=== PATIENT | female | born 1945 | race Caucasian/White ===

== ENCOUNTER 2020-08-12 13:17 | Inpatient (IN) | payer MEDICARE, OTHER ==
[2020-08-12 15:50] LABS: BASOPHIL 0.4 % (0-2); EOSINOPHIL 1.5 % (0-7); HCT 26.5 % (37.0-47.0); HGB 8.9 g/dl (12.5-16.0); LYMPHOCYTE 17.3 % (15-48); MCH 32.6 pg (25.0-31.0); MCHC 33.6 g/dL (32.0-36.0); MCV 97.1 fL (78.0-100.0); MONOCYTE 9.2 % (0-12); MPV 9.7 fL (6.0-9.5); NRBC 0; PLT 243 K/uL (150-400); RBC 2.73 M/uL (4.20-5.40); RDW 12.2 % (11.5-14.0); WBC 11.2 K/uL (4.0-10.5)
[2020-08-12 15:56] LABS: INR 4.82 (0.9-1.2); PROTHROMBIN TIME 43.1 SECONDS (11.4-13.6)
[2020-08-12 16:05] LABS: ALBUMIN 3.5 g/dL (3.4-5.0); BILIRUBIN - TOTAL 0.3 mg/dL (0.2-1.0); BUN/CREAT RATIO (CALC) 18.8 RATIO; CREATININE 0.96 mg/dL (0.51-0.95); GLOBULIN (CALCULATION) 3.7 g/dL; TOTAL PROTEIN 7.2 g/dL (6.4-8.2)
[2020-08-12 17:07] LABS: BILIRUBIN NEGATIVE (NEGATIVE); BLOOD 1+ Ery/uL (NEGATIVE); CLARITY CLEAR (CLEAR); COLOR YELLOW (YELLOW); GLUCOSE (U) NORMAL (NORMAL); LEUKOCYTES NEGATIVE Leu/uL (NEGATIVE); NITRITE NEGATIVE (NEGATIVE); PROTEIN NEGATIVE (NEGATIVE); UROBILINOGEN 0.2 mg/dL (0.2-1.0); pH 6.5 (5.0-9.0)
[2020-08-12 17:13] LABS: URINARY RBC RARE
[2020-08-12] MEDS ORDERED: OPSUMIT10 MG PO (21:22)
[2020-08-12] MEDS ORDERED: ADCIRCA20 MG PO (21:22)
[2020-08-12] MEDS ORDERED: SYNTHROID125 MCG PO (21:23)
[2020-08-12] MEDS ORDERED: PROZAC20 MG PO (21:24)
[2020-08-12] MEDS ORDERED: JANTOVEN3 MG PO (21:24)
[2020-08-12] MEDS ORDERED: CYCLOBENZAPRINE10 MG PO (21:25)
[2020-08-12] MEDS ORDERED: PRILOSEC20 MG PO (21:25)
[2020-08-12] MEDS ORDERED: DIGITEK125 MCG PO (21:26)
[2020-08-12] MEDS ORDERED: LOVASTATIN10 MG PO (21:28)
[2020-08-13 01:06] LABS: HCT 21.6 % (37.0-47.0); HGB 7.2 g/dL (12.5-16.0)
[2020-08-13 06:00] LABS: BASOPHIL 0.4 % (0-2); EOSINOPHIL 4.1 % (0-7); HCT 21.1 % (37.0-47.0); LYMPHOCYTE 24.3 % (15-48); MCH 32.6 pg (25.0-31.0); MCHC 33.2 g/dL (32.0-36.0); MCV 98.1 fL (78.0-100.0); MONOCYTE 10.3 % (0-12); MPV 9.4 fL (6.0-9.5); NEUTROPHIL 60.5 % (41-80); NRBC 0; PLT 173 K/uL (150-400); RBC 2.15 M/uL (4.20-5.40); RDW 12.6 % (11.5-14.0); WBC 6.8 K/uL (4.0-10.5)
[2020-08-13 06:11] LABS: INR 4.01 (0.9-1.2); PROTHROMBIN TIME 37.3 SECONDS (11.4-13.6)
--- NOTE | 2020-08-13 06:12 | NUR ---
APAPRN NOTIFIED OF PT HGB OF 7.0. WILL CONTINUE TO MONITOR
[2020-08-13 06:26] LABS: IRON % SATURATION 53.1 %SAT (20-50)
[2020-08-13 06:34] LABS: BUN/CREAT RATIO (CALC) 20.5 RATIO; CREATININE 0.88 mg/dL (0.51-0.95); POTASSIUM 4.3 mmol/L (3.5-5.1)
[2020-08-13] MEDS ORDERED: TOPROL XL 50 MG50 MG PO (09:57)
[2020-08-13] MEDS ORDERED: BUMEX1 MG PO (09:57)
[2020-08-13] MEDS ORDERED: FOLIC ACID1 MG PO (10:01)
[2020-08-13] MEDS ORDERED: POTASSIUM CHLO10 MEQ PO ×2 (10:03→10:04)
[2020-08-13 20:56] LABS: HCT 30.5 % (37.0-47.0)
[2020-08-13 20:57] LABS: HGB 10.1 g/dL (12.5-16.0)
[2020-08-14 05:12] LABS: BASOPHIL 0.5 % (0-2); EOSINOPHIL 4.5 % (0-7); HCT 30.3 % (37.0-47.0); LYMPHOCYTE 21.2 % (15-48); MCH 31.9 pg (25.0-31.0); MCHC 32.7 g/dL (32.0-36.0); MCV 97.7 fL (78.0-100.0); MONOCYTE 10.6 % (0-12); MPV 9.5 fL (6.0-9.5); NEUTROPHIL 62.8 % (41-80); NRBC 0; PLT 168 K/uL (150-400); WBC 7.8 K/uL (4.0-10.5)
[2020-08-14 05:18] LABS: INR 1.39 (0.9-1.2); PROTHROMBIN TIME 16.2 SECONDS (11.4-13.6)
[2020-08-14 05:25] LABS: BUN/CREAT RATIO (CALC) 17.6 RATIO; CREATININE 0.85 mg/dL (0.51-0.95); POTASSIUM 3.8 mmol/L (3.5-5.1)
[2020-08-14 06:08] LABS: HGB 9.9 g/dl (12.5-16.0)
[2020-08-15 09:20] LABS: BASOPHIL 0.5 % (0-2); EOSINOPHIL 3.2 % (0-7); HCT 35.5 % (37.0-47.0); HGB 11.7 g/dl (12.5-16.0); MCH 32.3 pg (25.0-31.0); MCV 98.1 fL (78.0-100.0); MONOCYTE 9.2 % (0-12); MPV 9.2 fL (6.0-9.5); NEUTROPHIL 67.7 % (41-80); NRBC 0; PLT 297 K/uL (150-400); RBC 3.62 M/uL (4.20-5.40); RDW 13.4 % (11.5-14.0)
[2020-08-15 09:21] LABS: WBC 15.6 K/uL (4.0-10.5)
[2020-08-15 09:37] LABS: INR 1.12 (0.9-1.2); PROTHROMBIN TIME 13.7 SECONDS (11.4-13.6)
[2020-08-15 10:06] LABS: BUN/CREAT RATIO (CALC) 9.8 RATIO; CREATININE 0.82 mg/dL (0.51-0.95)
== END 2020-08-15 15:40 | disposition home or self-care (01) | DRG 378 ==
LOC: FER 13:17 → FTCU 20:00
PROVIDERS: Allergy & Immunology Allergy; Nurse Practitioner; Nurse Practitioner Family; Surgery; ADMIT Internal Medicine
PROC: 0DJD8ZZ Inspection of Lower Intestinal Tract, Via Natural or Artificial Opening Endoscopic (ICD-10-PCS; 2020-08-15)
PROC: 30233N1 Transfusion of Nonautologous Red Blood Cells into Peripheral Vein, Percutaneous Approach (ICD-10-PCS; principal; 2020-08-15 11:00)
DX: K92.2 Gastrointestinal hemorrhage, unspecified (principal); D62 Acute posthemorrhagic anemia; I27.20 Pulmonary hypertension, unspecified; E78.5 Hyperlipidemia, unspecified; I25.10 Atherosclerotic heart disease of native coronary artery without angina pectoris; N18.9 Chronic kidney disease, unspecified; F32.9 Major depressive disorder, single episode, unspecified; Z20.822 Contact with and (suspected) exposure to COVID-19; M19.90 Unspecified osteoarthritis, unspecified site; Z85.3 Personal history of malignant neoplasm of breast; Z86.718 Personal history of other venous thrombosis and embolism; Z95.1 Presence of aortocoronary bypass graft; Z90.710 Acquired absence of both cervix and uterus; Z90.49 Acquired absence of other specified parts of digestive tract; Z88.6 Allergy status to analgesic agent; Z51.5 Encounter for palliative care
CPT/HCPCS: 36415; 36430; 80048; 80053; 81001; 82728; 83540; 83550; 85014; 85018; 85025; 85610; 85730; 86850; 86900; 86901; 86922; 93005; J2704; J3430; J7030; J7120; P9016; Q9967; U0002

== ENCOUNTER 2020-12-30 16:32 | Inpatient (IN) | payer MEDICARE, OTHER ==
[~2020-12-30] VITALS: Ht 165.1 cm; Wt 57.7 kg
[~2020-12-30 16:32] MED LIST: ADCIRCA20 MG PO; BUMEX1 MG PO; CYCLOBENZAPRINE10 MG PO; DIGITEK125 MCG PO; FOLIC ACID1 MG PO; JANTOVEN3 MG PO; LOVASTATIN10 MG PO; OPSUMIT10 MG PO; POTASSIUM CHLO10 MEQ PO; PRILOSEC20 MG PO; PROZAC20 MG PO; SYNTHROID125 MCG PO; TOPROL XL 50 MG50 MG PO
[2020-12-30 16:57] LABS: BASOPHIL 0.6 % (0-2); EOSINOPHIL 2.9 % (0-7); HCT 28.4 % (37.0-47.0); HGB 9.8 g/dl (12.5-16.0); LYMPHOCYTE 14.1 % (15-48); MCHC 34.5 g/dL (32.0-36.0); MCV 95.6 fL (78.0-100.0); MONOCYTE 7.6 % (0-12); MPV 9.1 fL (6.0-9.5); NEUTROPHIL 74.3 % (41-80); NRBC 0; PLT 197 K/uL (150-400); RBC 2.97 M/uL (4.20-5.40); RDW 13.2 % (11.5-14.0); WBC 9.6 K/uL (4.0-10.5)
[2020-12-30 17:22] LABS: ALBUMIN 3.5 g/dL (3.4-5.0); BILIRUBIN - TOTAL 0.5 mg/dL (0.2-1.0); BUN/CREAT RATIO (CALC) 15.5 RATIO; CREATININE 0.84 mg/dL (0.51-0.95); GLOBULIN (CALCULATION) 4.4 g/dL; TOTAL PROTEIN 7.9 g/dL (6.4-8.2)
[2020-12-30 17:31] LABS: POTASSIUM 4.7 mmol/L (3.5-5.1)
[2020-12-30 17:38] LABS: PROTHROMBIN TIME 103.2 SECONDS (11.4-13.6)
[2020-12-30 17:40] LABS: INR 14.59 (0.9-1.2); PTT 113.3 SECONDS (22.2-34.7)
[2020-12-31 06:17] LABS: BASOPHIL 0.5 % (0-2); EOSINOPHIL 3.7 % (0-7); HCT 24.6 % (37.0-47.0); HGB 8.5 g/dl (12.5-16.0); LYMPHOCYTE 20.2 % (15-48); MCH 33.1 pg (25.0-31.0); MCHC 34.6 g/dL (32.0-36.0); MCV 95.7 fL (78.0-100.0); MONOCYTE 11.6 % (0-12); MPV 9.6 fL (6.0-9.5); NEUTROPHIL 63.5 % (41-80); NRBC 0; PLT 158 K/uL (150-400); RBC 2.57 M/uL (4.20-5.40); WBC 8.1 K/uL (4.0-10.5)
[2020-12-31 06:34] LABS: CREATININE 0.8 mg/dL (0.51-0.95); POTASSIUM 4.7 mmol/L (3.5-5.1)
[2020-12-31 06:40] LABS: INR 11.07 (0.9-1.2)
[2020-12-31] MEDS ORDERED: BACLOFEN 10MG T10 MG PO (09:58)
[2020-12-31] MEDS ORDERED: ALLOPURINOL100 MG PO (09:59)
[2020-12-31] MEDS ORDERED: TOPROL XL 50 MG50 MG PO (10:02)
[2020-12-31] MEDS ORDERED: OPSUMIT PO (10:04)
[2020-12-31] MEDS ORDERED: PRINIVIL20 MG PO (10:04)
[2020-12-31] MEDS ORDERED: [UNRECOGNIZED DRUG - OTHER] (11:29)
[2020-12-31] MEDS ORDERED: IMMODIUM (11:29)
--- NOTE | 2020-12-31 15:56 | NUR ---
MET WITH PT. REGARDING HOME NEEDS. PT. STATES THAT SHE RESIDES WITH HER . HER IS LEGALLY BLIND. SHE IS RESPONSIBLE FOR DRIVING AND ALL ERRANDS AND APPTS. SHE HAS ONE DAUGHTER AND SON IN LAW WHO ARE SUPPORTIVE AND OFFER ASSISTANCE WHEN THEY CAN. PT. IS INDEPENDENT AND DOES NOT REQUIRE ANY DME. SHE DOES NOT HAVE HH NOR DOES SHE WANT IT.
[2021-01-01 05:39] LABS: BASOPHIL 0.5 % (0-2); EOSINOPHIL 3.4 % (0-7); HGB 8.1 g/dl (12.5-16.0); LYMPHOCYTE 19.4 % (15-48); MCH 33.5 pg (25.0-31.0); MCHC 35.2 g/dL (32.0-36.0); MONOCYTE 11.9 % (0-12); MPV 9.5 fL (6.0-9.5); NEUTROPHIL 64.1 % (41-80); NRBC 0; PLT 143 K/uL (150-400); RBC 2.42 M/uL (4.20-5.40); RDW 13.2 % (11.5-14.0); WBC 7.4 K/uL (4.0-10.5)
[2021-01-01 05:59] LABS: INR 3.7 (0.9-1.2)
--- NOTE | 2021-01-01 15:07 | NUR ---
CALLED [facility] AT [phone] SPOKE TO [id number] CALLED IN ELIQUIS 5MG TWICE A DAY FOR [address] VALENCIA COPAY IS 26.82. INFORMED PT OF COST SHE GAVE APPROVAL. TOLD HER SHE WOULD HAVE TO FOLLOW UP WITH HER MD TO GET REFILLS
[2021-01-02 06:24] LABS: BASOPHIL 0.5 % (0-2); EOSINOPHIL 3.4 % (0-7); HCT 31.3 % (37.0-47.0); LYMPHOCYTE 16.7 % (15-48); MCH 32.4 pg (25.0-31.0); MCHC 34.8 g/dL (32.0-36.0); MCV 93.2 fL (78.0-100.0); MONOCYTE 11.3 % (0-12); MPV 9.4 fL (6.0-9.5); NEUTROPHIL 67.6 % (41-80); NRBC 0; PLT 163 K/uL (150-400); RBC 3.36 M/uL (4.20-5.40); RDW 14.2 % (11.5-14.0); WBC 10.3 K/uL (4.0-10.5)
[2021-01-02 06:26] LABS: INR 1.78 (0.9-1.2); PROTHROMBIN TIME 19.9 SECONDS (11.8-13.4)
[2021-01-02 06:32] LABS: HGB 10.9 g/dl (12.5-16.0)
[2021-01-02 06:51] LABS: CREATININE 0.8 mg/dL (0.51-0.95); MAGNESIUM 1.4 mg/dL (1.8-2.4); PHOSPHORUS 3.3 mg/dL (2.6-4.7); POTASSIUM 4.3 mmol/L (3.5-5.1)
[2021-01-02] MEDS ORDERED: ELIQUIS5 MG PO (10:40)
== END 2021-01-02 13:25 | disposition home or self-care (01) | DRG 813 ==
LOC: FER 16:32 → FMS 19:50
PROVIDERS: Emergency Medicine; Nurse Practitioner; ADMIT Internal Medicine
PROC: 30233N1 Transfusion of Nonautologous Red Blood Cells into Peripheral Vein, Percutaneous Approach (ICD-10-PCS; principal; 2021-01-01)
DX: D68.32 Hemorrhagic disorder due to extrinsic circulating anticoagulants (principal); E87.1 Hypo-osmolality and hyponatremia; D50.9 Iron deficiency anemia, unspecified; R04.0 Epistaxis; T45.511A Poisoning by anticoagulants, accidental (unintentional), initial encounter; M25.421 Effusion, right elbow; I25.10 Atherosclerotic heart disease of native coronary artery without angina pectoris; Z95.1 Presence of aortocoronary bypass graft; I27.20 Pulmonary hypertension, unspecified; Z86.718 Personal history of other venous thrombosis and embolism; Z79.01 Long term (current) use of anticoagulants; E83.42 Hypomagnesemia; Z85.3 Personal history of malignant neoplasm of breast; E78.5 Hyperlipidemia, unspecified; F32.9 Major depressive disorder, single episode, unspecified; M81.0 Age-related osteoporosis without current pathological fracture; R42 Dizziness and giddiness; Z79.899 Other long term (current) drug therapy; M32.9 Systemic lupus erythematosus, unspecified; M19.90 Unspecified osteoarthritis, unspecified site; Z90.711 Acquired absence of uterus with remaining cervical stump; Z90.49 Acquired absence of other specified parts of digestive tract; Z88.5 Allergy status to narcotic agent; Z91.040 Latex allergy status
CPT/HCPCS: 36415; 36430; 71045; 73080; 73110; 80048; 80053; 83605; 83735; 83880; 84100; 85025; 85610; 85730; 86850; 86900; 86901; 86922; G0378; J3430; J3475; J7030; P9016; U0002

== ENCOUNTER 2021-03-20 11:25 | Emergency (ER) | payer MEDICARE, OTHER ==
[~2021-03-20 11:25] MED LIST changes: +ALLOPURINOL100 MG PO; +BACLOFEN 10MG T10 MG PO; +ELIQUIS5 MG PO; +IMMODIUM; +OPSUMIT PO; +PRINIVIL20 MG PO; +[UNRECOGNIZED DRUG - OTHER]
[2021-03-20 13:13] LABS: BASOPHIL 0.5 % (0-2); EOSINOPHIL 0.4 % (0-7); HCT 27.3 % (37.0-47.0); HGB 9.2 g/dl (12.5-16.0); LYMPHOCYTE 6.6 % (15-48); MCH 33.3 pg (25.0-31.0); MCHC 33.7 g/dL (32.0-36.0); MCV 98.9 fL (78.0-100.0); MONOCYTE 7.4 % (0-12); MPV 9.5 fL (6.0-9.5); NEUTROPHIL 84.1 % (41-80); NRBC 0; PLT 227 K/uL (150-400); RBC 2.76 M/uL (4.20-5.40); RDW 14.6 % (11.5-14.0)
[2021-03-20 13:28] LABS: INR 1.48 (0.9-1.2); PROTHROMBIN TIME 17.2 SECONDS (11.8-13.4); PTT 34.1 SECONDS (24.4-34.7)
[2021-03-20 13:36] LABS: ALBUMIN 3.4 g/dL (3.4-5.0); BILIRUBIN - TOTAL 0.6 mg/dL (0.2-1.0); BUN/CREAT RATIO (CALC) 26.5 RATIO; CREATININE 1.17 mg/dL (0.51-0.95); GLOBULIN (CALCULATION) 4.3 g/dL; POTASSIUM 4.7 mmol/L (3.5-5.1); TOTAL PROTEIN 7.7 g/dL (6.4-8.2)
[2021-03-20 16:37] LABS: LACTIC ACID 1.9 mmol/L (0.4-1.9)
[2021-03-20 17:14] LABS: HCT 22.6 % (37.0-47.0); HGB 7.6 g/dL (12.5-16.0)
[2021-03-20 17:26] LABS: BILIRUBIN NEGATIVE (NEGATIVE); BLOOD NEGATIVE Ery/uL (NEGATIVE); CLARITY CLEAR (CLEAR); COLOR YELLOW (YELLOW); GLUCOSE (U) NORMAL (NORMAL); LEUKOCYTES NEGATIVE Leu/uL (NEGATIVE); NITRITE NEGATIVE (NEGATIVE); PROTEIN NEGATIVE (NEGATIVE); UROBILINOGEN 0.2 mg/dL (0.2-1.0); pH 6.5 (5.0-9.0)
[2021-03-20 23:14] LABS: HCT 27.7 % (37.0-47.0); HGB 9.4 g/dL (12.5-16.0)
[2021-03-21 08:26] LABS: BASOPHIL 0.5 % (0-2); EOSINOPHIL 0.6 % (0-7); HCT 21.9 % (37.0-47.0); HGB 7.4 g/dl (12.5-16.0); LYMPHOCYTE 18.5 % (15-48); MCHC 33.8 g/dL (32.0-36.0); MCV 97.8 fL (78.0-100.0); MONOCYTE 9.3 % (0-12); MPV 9.5 fL (6.0-9.5); NEUTROPHIL 70.5 % (41-80); NRBC 0; PLT 143 K/uL (150-400); RBC 2.24 M/uL (4.20-5.40); RDW 15.2 % (11.5-14.0); WBC 12.5 K/uL (4.0-10.5)
[2021-03-21 08:47] LABS: BUN/CREAT RATIO (CALC) 37.5 RATIO; CREATININE 1.12 mg/dL (0.51-0.95); POTASSIUM 4.3 mmol/L (3.5-5.1)
== END 2021-03-21 11:55 | disposition other institution (70) ==
LOC: FER 11:25
PROVIDERS: Physician Assistant
DX: K92.2 Gastrointestinal hemorrhage, unspecified (principal); J18.9 Pneumonia, unspecified organism; I27.20 Pulmonary hypertension, unspecified; Z98.84 Bariatric surgery status; Z90.49 Acquired absence of other specified parts of digestive tract; Z20.822 Contact with and (suspected) exposure to COVID-19; Z88.5 Allergy status to narcotic agent
CPT/HCPCS: 36415; 36430; 71045; 80048; 80053; 81003; 83605; 83690; 84484; 85014; 85018; 85025; 85610; 85730; 86850; 86900; 86901; 86922; 87040; 93005; C9113; J0696; J2405; J7030; J7040; J7050; P9016; Q9967; U0002

== ENCOUNTER 2022-01-23 15:24 | Inpatient (IN) | payer MEDICARE, OTHER ==
[~2022-01-23] VITALS: Ht 160 cm; Wt 54.1 kg
[2022-01-23 17:18] LABS: BASOPHIL 0.5 % (0-2); EOSINOPHIL 1.4 % (0-7); HCT 26.7 % (37.0-47.0); HGB 8.9 g/dl (12.5-16.0); LYMPHOCYTE 9.9 % (15-48); MCHC 33.3 g/dL (32.0-36.0); MCV 101.9 fL (78.0-100.0); MONOCYTE 6.7 % (0-12); MPV 9.1 fL (6.0-9.5); NRBC 0; PLT 172 K/uL (150-400); RBC 2.62 M/uL (4.20-5.40); RDW 13.4 % (11.5-14.0); WBC 7.7 K/uL (4.0-10.5)
[2022-01-23 17:35] LABS: INR 1.67 (0.9-1.2); PROTHROMBIN TIME 19.1 SECONDS (11.9-13.9)
[2022-01-23 17:44] LABS: ALBUMIN 3.3 g/dL (3.4-5.0); BILIRUBIN - TOTAL 0.3 mg/dL (0.2-1.0); BUN/CREAT RATIO (CALC) 13.3 RATIO; CREATININE 0.98 mg/dL (0.51-0.95); GLOBULIN (CALCULATION) 4.2 g/dL; POTASSIUM 4.4 mmol/L (3.5-5.1); TOTAL PROTEIN 7.5 g/dL (6.4-8.2)
[2022-01-23 17:47] LABS: CKMB 1.9 ng/mL (0.0-3.6)
[2022-01-23] MEDS ORDERED: ADCIRCA20 MG PO (23:29)
[2022-01-23] MEDS ORDERED: DIGOXIN125 MCG PO (23:32)
[2022-01-23] MEDS ORDERED: CYANOCOBAL1000 MCG/1 IM (23:33)
[2022-01-23] MEDS ORDERED: POTASSIUM CHLO10 ME1 PO (23:35)
[2022-01-23] MEDS ORDERED: FLUOXETINE HCL20 MG PO (23:37)
[2022-01-23] MEDS ORDERED: LOVASTATIN10 MG PO (23:37)
[2022-01-24] MEDS ORDERED: ELIQUIS5 MG PO (00:15)
[2022-01-24] MEDS ORDERED: ESOMEPRAZOLE MA40 MG PO (00:15)
[2022-01-24 05:47] LABS: HCT 24.6 % (37.0-47.0); HGB 8.4 g/dl (12.5-16.0); MCH 34.4 pg (25.0-31.0); MCHC 34.1 g/dL (32.0-36.0); MCV 100.8 fL (78.0-100.0); MPV 9.4 fL (6.0-9.5); RBC 2.44 M/uL (4.20-5.40); RDW 13.2 % (11.5-14.0); RETICULOCYTE COUNT 2.4 % (1.0-2.0); WBC 7.1 K/uL (4.0-10.5)
[2022-01-24 06:01] LABS: IRON % SATURATION 21.3 %SAT (20-50)
[2022-01-24 06:18] LABS: BUN/CREAT RATIO (CALC) 14.4 RATIO; CREATININE 0.9 mg/dL (0.51-0.95); POTASSIUM 4.2 mmol/L (3.5-5.1)
[2022-01-24 10:34] LABS: FOLIC ACID (SERUM) 74.6 ng/mL (8.6-58.9)
[2022-01-25 06:50] LABS: BASOPHIL 0.7 % (0-2); EOSINOPHIL 3.6 % (0-7); HCT 27.6 % (37.0-47.0); HGB 9.1 g/dl (12.5-16.0); LYMPHOCYTE 18.5 % (15-48); MCH 33.1 pg (25.0-31.0); MCV 100.4 fL (78.0-100.0); MONOCYTE 11.5 % (0-12); MPV 9.3 fL (6.0-9.5); NEUTROPHIL 65.2 % (41-80); NRBC 0; PLT 177 K/uL (150-400); RBC 2.75 M/uL (4.20-5.40); RDW 13.2 % (11.5-14.0); WBC 8.3 K/uL (4.0-10.5)
[2022-01-25 07:04] LABS: BUN/CREAT RATIO (CALC) 16.7 RATIO; CREATININE 0.96 mg/dL (0.51-0.95); MAGNESIUM 1.9 mg/dL (1.8-2.4); POTASSIUM 4.3 mmol/L (3.5-5.1)
[2022-01-26 06:37] LABS: BASOPHIL 0.6 % (0-2); EOSINOPHIL 3.8 % (0-7); HGB 9.1 g/dl (12.5-16.0); LYMPHOCYTE 19.7 % (15-48); MCH 33.7 pg (25.0-31.0); MCHC 33.7 g/dL (32.0-36.0); MONOCYTE 12.8 % (0-12); MPV 9.7 fL (6.0-9.5); NEUTROPHIL 62.7 % (41-80); NRBC 0; PLT 194 K/uL (150-400); RDW 13.1 % (11.5-14.0); WBC 8.2 K/uL (4.0-10.5)
[2022-01-26 06:56] LABS: BUN/CREAT RATIO (CALC) 16.7 RATIO; CREATININE 0.9 mg/dL (0.51-0.95); MAGNESIUM 1.8 mg/dL (1.8-2.4)
--- NOTE | 2022-01-26 13:05 | NUR ---
PT STATES SHE DOES NOT WANT HOME HELATH AT THIS TIME TOLD HER IF SHE CHANGES MIND TO LET US KNOW OR IF SHE IS D/C HOME TO CALL HER P2P TO REQUEST HOME HEALTH.
[2022-01-27 06:18] LABS: BASOPHIL 0.7 % (0-2); EOSINOPHIL 4.4 % (0-7); HCT 25.7 % (37.0-47.0); HGB 8.7 g/dl (12.5-16.0); LYMPHOCYTE 21.4 % (15-48); MCH 33.7 pg (25.0-31.0); MCHC 33.9 g/dL (32.0-36.0); MCV 99.6 fL (78.0-100.0); MPV 9.4 fL (6.0-9.5); NRBC 0; PLT 180 K/uL (150-400); RBC 2.58 M/uL (4.20-5.40); RDW 13.1 % (11.5-14.0); WBC 8.9 K/uL (4.0-10.5)
[2022-01-27 06:41] LABS: POTASSIUM 3.8 mmol/L (3.5-5.1)
[2022-01-27] MEDS ORDERED: BUMEX1 MG PO (09:19)
== END 2022-01-27 13:43 | disposition home or self-care (01) | DRG 291 ==
LOC: FER 15:24 → FTCU 18:37
PROVIDERS: Emergency Medicine; Internal Medicine; Nurse Practitioner Acute Care; ADMIT Allergy & Immunology Allergy
PROC: B24BZZZ Ultrasonography of Heart with Aorta (ICD-10-PCS; principal; 2022-01-24)
DX: I13.0 Hypertensive heart and chronic kidney disease with heart failure and stage 1 through stage 4 chronic kidney disease, or unspecified chronic kidney disease (principal); I50.33 Acute on chronic diastolic (congestive) heart failure; J96.01 Acute respiratory failure with hypoxia; I48.20 Chronic atrial fibrillation, unspecified; K62.5 Hemorrhage of anus and rectum; I48.92 Unspecified atrial flutter; D62 Acute posthemorrhagic anemia; Z20.822 Contact with and (suspected) exposure to COVID-19; I27.20 Pulmonary hypertension, unspecified; I08.0 Rheumatic disorders of both mitral and aortic valves; I25.118 Atherosclerotic heart disease of native coronary artery with other forms of angina pectoris; I50.812 Chronic right heart failure; E78.5 Hyperlipidemia, unspecified; M81.0 Age-related osteoporosis without current pathological fracture; F32.A Depression, unspecified; N18.30 Chronic kidney disease, stage 3 unspecified; D63.1 Anemia in chronic kidney disease; D53.9 Nutritional anemia, unspecified; D50.9 Iron deficiency anemia, unspecified; D51.9 Vitamin B12 deficiency anemia, unspecified; I44.0 Atrioventricular block, first degree; G62.9 Polyneuropathy, unspecified; I25.2 Old myocardial infarction; Z95.1 Presence of aortocoronary bypass graft; Z79.01 Long term (current) use of anticoagulants; Z99.81 Dependence on supplemental oxygen; Z90.49 Acquired absence of other specified parts of digestive tract; Z90.711 Acquired absence of uterus with remaining cervical stump; Z82.49 Family history of ischemic heart disease and other diseases of the circulatory system; Z79.899 Other long term (current) drug therapy; Z88.5 Allergy status to narcotic agent; Z91.040 Latex allergy status; Z86.718 Personal history of other venous thrombosis and embolism
CPT/HCPCS: 36415; 36600; 71046; 71250; 78278; 80048; 80053; 82553; 82607; 82728; 82746; 82803; 83036; 83540; 83550; 83735; 83880; 84145; 84443; 84484; 85025; 85610; 85730; 93005; 94010; 94762; 97116; 97162; 97167; 97530; 97535; A4641; A9560; G0378; J2916; J3475; U0002